=== PATIENT | male | born 1965 | race Two or more races ===

== ENCOUNTER 2024-05-13 15:05 | Outpatient (AMB) | payer OTHER, SELFPAY ==
[2024-05-13 15:08] VITALS: BP 137/79; PULSE 101; O2SAT 97; BMI 43.1
--- NOTE | 2024-05-13 15:08 | A.OFFVIS_ITS ---
Vital Signs 05/13/24 15:08 Height 5 ft 9 in Weight 292 lb BMI 43.1 BP 137/79 Blood Pressure Location Lt brachial Position Sitting Pulse 101 H Pulse Source Pulse Oximeter Pulse Oximetry (%) 97 Oxygen Delivery Method Room Air Intake Visit Reasons: Chronic Lumbar DJD Allergies No Known Allergies Allergy (Verified 05/13/24 15:39) HPI Comments Details: Manual is very pleasant 59 years old gentleman who presents in my office with complains on multiple pain generators. He reports severe pain in the lower back, pain in the right groin, pain in the posterior neck pain in the bilateral shoulders pain in bilateral legs and pain in bilateral feet. He reports that because of his pain he can not sleep normally. He can do activities of daily living. However he can not take care of himself and he can not function normally. He is retired and on permanent disability. He is wheelchair-bound however he reports that he is able to walk, he is able to stand. He reports that heat applications make his pain better. He is currently taking oxycodone 15 mg 5 times a day. In terms of tissue damage he reports his pain as stabbing, lancinating, pinching, cramping, crushing, tugging, pulling, wrenching, dull, sore, hurting, aching, heavy, tiring, exhausting, tight, squeezing, tearing sensation. He had multiple images of the cervical and lumbar spine he as MRI performed in 04/16/2024 results of this MRI dictated as below. He is actually scheduled for yet another neck MRI in the few weeks. He is currently involved in physical therapy water exercises he is wading chest deep in the water. He is also involved in occupational therapy he receives back massages and he never had any injections done. He has extensive past medical history. He reports history of hypertension dizziness and fatigue, history of prostate problem, history of chest pain heart palpitations and angina, history of asthma and shortness of enzo ath. He has history of diabetes cardiac disease and digestive problems. His past surgical history 1993 he had lower back surgery laminotomy L4-5 and neck surgery was performed in 2017. He denies smoking cigarettes he stopped 25 years ago he denies drinking alcohol he drinks 3 cups of coffee a day he denies soda he denies recreational drugs. Review of Systems Const All systems reviewed & are unremarkable except as noted in HPI and below Reports no additional complaints, Reports lethargy and Reports weight gain ENT Reports Normal hearing present Card Reports as per HPI Resp Reports as per HPI GI Reports as per HPI Reports as per HPI Musc Reports as per HPI Neuro Reports no additional complaints, Reports Normal hearing present, Denies Abnormal speech present, Denies confusion and Denies Sensory deficit (Neuro) Psych Reports no additional complaints and Denies confusion Physical Exam Vital Signs: Last Vital Signs Pulse 101 H 05/13/24 15:08 BP 137/79 05/13/24 15:08 Pulse Ox 97 05/13/24 15:08 Oxygen Delivery Method Room Air 05/13/24 15:08 BMI result Body Mass Index 43.1 Const General: no acute distress; No confusion Nutritional Appearance: obese morbidly obese Orientation/consciousness: patient oriented x3 and No confusion Eyes General: appearance normal, both eyes and all related structures Pupils: Equal, round and reactive pupils present EOM: EOMs intact bilaterally Neck Neck: Yes full ROM Chest Chest palpation & inspection: normal inspection of the chest Resp Effort & Inspection: normal respiratory effort, able to speak in complete sent ences, normal respiratory pattern, no audible wheezes and no cough Cardio Jugular venous distension: no JVD GI Inspection: Yes normal to inspection Back/Spine/Pelvis Other: Eben test is positive bilaterally. Pelvic compression test is positive bilaterally. Pelvic distraction test is positive bilaterally. Tenderness on palpation in paraspinal spinal region most lower portion of the lumbar spine and upper sacral bone. Flexing forward and flexing backwards both aggravate his pain. Loading test is positive bilaterally. SLR is positive bilaterally. Lassegue test is positive bilaterally. Lateral rotation of the right hip causes pain in the groin. Negative on the left. Neuro General: patient oriented x3, gait normal and No confusion Cranial nerves: Yes CN's II-XII intact bilaterally, Yes Equal, round and reactive pupils present, Yes Normal hearing present and Yes Ability to bilaterally elevate shoulders present Speech: No Abnormal speech present Gait exam (Neuro): Normal gait present Motor exam (neuro): 5/5 motor strength present throughout Sensory Exam: No Sensory deficit (Neuro) Extrem General: No pedal edema Psych Speech and movement: Normal speech and movement present Affect: normal affect Attitude: cooperative Thought process: Normal thought process present Thought content: Normal thought content present Insight: Good insight present (Psych) Judgement: Good judgement present (Psych) Results Reviewed Results Reviewed: MRI lumbar spine findings: Study assumes 5 tyc-uvk-[id number] lumbar type vertebral bodies. Alignment vertebral marrow and disc. Alignment is normal. Vertebral body heights are preserved. There is combine Modic type 1 in Modic type 2 changes at L4-5. Multilevel endplate osteophytes and facet arthropathy. There is diffuse disc desiccation and there is multiple Schmorl's nodes. There is loss of intervertebral height at L4-5. Conus the conus normal in size and contour and terminates at L1-L2. Paraspinal tissues there is mild atrophy of the posterior paraspinal musculature. Detailed finding by the level. L1-L2 minimal disc bulge and facet spurring. No significant central canal or neural foraminal narrowing. L2-L3: Diffuse disc bulge with posterior central annular fissure and facet spurring. Mild spinal canal narrowing. Minimal bilateral neural foraminal narrowing. L3-L4: Diffuse disc bulge, ligamentum flavum thickening, facet arthropathy with prominent dorsal epidural fat superimposed on congenitally narrowed spinal canal resulting in moderate to severe canal stenosis. There is moderate bilateral neural foraminal narrowing. L4-5 diffuse disc bulge with ligamentum flavum thickening and facet arthropathy. There is probable left-sided laminotomy defect which can not be correlated with surgical history. There is wpve-vd-xowupitj canal stenosis. There is narrowing of the subarticular zones and crowding of the bilateral traversing L5 nerve roots. There is severe bilateral neural foraminal narrowing with crowding of exiting L4 nerve roots. L5-S1: Diffuse disc bulge with a small central protrusion component. Facet arthropathy. No significant canal stenosis. Severe left and moderate right neural foraminal narrowing with crowding of the exiting L 5 nerve root. Assessment & Plan Assessment & Plan (1) Arthritis of right hip: Code(s): M16.11 - Unilateral primary osteoarthritis, right hip Category: Medical (2) Postlaminectomy syndrome of lumbar region: Code(s): M96.1 - Postlaminectomy syndrome, not elsewhere classified Category: Medical (3) Spondylosis without myelopathy or radiculopathy, lumbar region: Code(s): M47.816 - Spondylosis without myelopathy or radiculopathy, lumbar region Category: Medical (4) Sacroiliac joint dysfunction of both sides: Code(s): M53.3 - Sacrococcygeal disorders, not elsewhere classified Category: Medical (5) Sacroiliitis: Code(s): M46.1 - Sacroiliitis, not elsewhere classified Category: Medical Plan 1. This patient is very unfortunate and suffering from multiple arthritis sides in my impression. He has arthritis of the right hip. He has spondylosis of lumbar spine with facet joint arthritis, with positive loading test the pain most likely facetogenic in nature and mostly axial. At the same time SLR is positive bilaterally maybe evident of some nerve root compression which is described as above in the MRI. Another feature of the physical exam points out to the pain in the groin with lateral rotation of the hip. This patient most likely suffers from right hip arthritis. And yet another feature of the physical exam with positive pelvic compression, pelvic distraction, Eben test bilaterally points out to sacroiliitis. 2. I will send him for right hip x-ray. 3. I will schedule him for the bilateral diagnostic sacroiliac joint injection to assess in what extent sacroiliac joints are affecting his pain. 4. I will start him on Celebrex, he previously was trying NSAIDs with some effect however gastric irritation prevented him from taking this medication. Orders: Orders XR hip RT min 2V 05/13/24 M16.11 - Unilateral primary osteoarthritis, right hip Medications: New celecoxib (Celebrex) 100 mg PO BID 60 caps 8RF 30 days Patient Instructions: I here by testify that I spent 46 minutes in conversation with this patient as well as planning his care and organizing this note. Coding Level of Care Code New Pt Level 4 (99310) Diagnoses Arthritis of right hip M16.11 Postlaminectomy syndrome of lumbar region M96.1 Spondylosis without myelopathy or radiculopathy, lumbar region M47.816 Sacroiliac joint dysfunction of both sides M53.3 Sacroiliitis M46.1
--- OUTSIDE RECORDS SUMMARY | 2024-05-13 16:09 | XMS_ITS | Data Portability ---
Author Organization [employer] Address [address] [place] [phone] Assessment Encounter Date Assessment Date Assessment LastModified by Organization Details LastModified Time 02/01/2022 02/01/2022 service called for chest pain foud 56 yom reporting past few days constant 5/10 chest pain provoked by exercise, incompeltel resolved by rest discussed with medic and pt very concerning chest pain pattern refer ED for accelerated w/up [email or web address] Not available 02/01/2022 22:40:06 Plan of Treatment Reminders Order Date Submit Date Provider Last Modified By Organization Details Last Modified Time Details Appointments None record ed. Lab None record ed. Referral None record ed. Procedures None record ed. Surgeries None record ed. Imaging None record ed. Medication Orders None record ed. Patient TargetsNo targets recorded. Patient InstructionsNo instructions recorded. Reason for Referral None Reported. Medical Equipment None Reported. Medications Name Sig Start Date Stop Date Status Note LastModified by Organization Details LastModified Time cyclobenzapr ine 10 mg tablet TAKE 1 TABLET BY MOUTH THREE TIMES DAILY active Not Available Not Available Not Available bupropion HCl SR 150 mg tablet,12 hr sustained-re lease TAKE 1 TABLET BY MOUTH TWICE DAILY active Not Available Not Available No t Available gabapentin 600 mg tablet TAKE 1 TABLET BY MOUTH THREE TIMES DAILY active Not Available Not Available Not Available cetirizine 10 mg tablet TAKE 1 TABLET BY MOUTH DAILY active Not Available Not Available Not Available ibuprofen 800 mg tablet TAKE 1 TABLET BY MOUTH EVERY 8 HOURS NEEDED FOR PAIN active Not Available Not Available No t Available FreeStyle Lancets 28 gauge USE DIRECTED TO TEST FOUR TIMES DAILY active Not Available Not Available Not Available peg-electrol yte solution 420 gram oral solution MIX WITH WATER ACORDING TO PRODUCT LABEL AND DRINK 8 OUNCES EVERY 20 MINUTES.STA RT TO DRINK THE PREP FLUID ON THE EVENING BEFORE COLONOSCOPY . active Not Available Not Available No t Available amoxicillin 500 mg tablet TAKE 1 TABLET BY MOUTH EVERY 8 HOURS FOR 7 DAYS active Not Available Not Available No t Available oxycodone 15 mg tablet TAKE 1 TABLET BY MOUTH FIVE TIMES DAILY PMPCHECKED. FILL ON 01/17/22 active Not Available Not Available No t Available tamsulosin 0.4 mg capsule TAKE 1 CAPSULE BY MOUTH DAILY AT BEDTIME active Not Available Not Available N ot Available trazodone 100 mg tablet TAKE 1 TABLET BY MOUTH DAILY AT BEDTIME active Not Available Not Available N ot Available montelukast 10 mg tablet TAKE 1 TABLET BY MOUTH EVERY EVENING active Not Available Not Available No t Available furosemide 20 mg tablet TAKE 1 TABLET BY MOUTH DAILY active Not Available Not Available Not Available ketoconazole 2 % topical cream APPLY TOPICALLY TO THE AFFECTED AREA DAILY active Not Available Not Available N ot Available fluticasone propionate 50 mcg/actuatio n nasal spray,suspen jannet SHAKE LIQUID AND USE 1 SPRAY IN EACH NOSTRIL EVERY DAY active Not Available Not Available No t Available Ventolin HFA 90 mcg/actuatio n aerosol inhaler INHALE 2 PUFFS BY MOUTH EVERY 4 HOURS NEEDED. active Not Available Not Available No t Available escitalopram 10 mg tablet TAKE 1 TABLET BY MOUTH DAILY active Not Available Not Available Not Available Novolog FlexPen U-100 Insulin aspart 100 unit/mL (3 mL) subcutaneous INJECT PER SLIDING SCALE TWICE DAILY. MAX 80 UNITS PER 24 HOURS active Not Available Not Available No t Available metoprolol tartrate 25 mg tablet TAKE 1 TABLET BY MOUTH TWICE DAILY active Not Available Not Available No t Available chlorhexidin e gluconate 0.12 % mouthwash SWISH 1/2 OUNCE BY MOUTH FOR 30 SECONDS THEN SPIT OUT TWICE DAILY active Not Available Not Available No t Available BD Ultra-Fine Short Pen Needle 31 gauge x 5/16 USE FOUR TIMES DAILY active Not Available Not Available Not Available FreeStyle Lite Strips USE DIRECTED TO TEST BLOOD SUGAR FOUR TIMES DAILY active Not Available Not Available Not Available Breo Ellipta 200 mcg-25 mcg/dose powder for inhalation INHALE 1 PUFF BY MOUTH EVERY DAY active Not Available Not Available No t Available Spiriva Respimat 1.25 mcg/actuatio n solution for inhalation INHALE 2 PUFFS BY MOUTH EVERY DAY active Not Available Not Available No t Available Tresiba FlexTouch U-200 insulin 200 unit/mL (3 mL) subcutaneous pen ADMINISTER 140 UNITS UNDER THE SKIN TWICE DAILY active Not Available Not Available No t Available FreeStyle Sophia 2 Sensor kit USE DIRECTED TO TEST BLOOD SUGAR 3 TO 4 TIMES DAILY active Not Available Not Available No t Available FreeStyle Sophia 2 [place] USE DIRECTED TO CHECK BLOOD SUGAR active Not Available Not Available No t Available Trulicity 3 mg/0.5 mL subcutaneous pen injector INJECT 3 MG UNDER THE SKIN EVERY WEEK ON THE SAME DAY active Not Available Not Available No t Available Trulicity 4.5 mg/0.5 mL subcutaneous pen injector active Not Available Not Available Not Available BinaxNOW COVID-19 Ag Self Test kit TEST DIRECTED TODAY active Not Available Not Available No t Available Vitals Date Recorded Oxygen saturation Oxygen saturation in Arterial blood by Pulse oximetry Heart rate Body temperature Respiratory rate Systolic blood pressure Diastolic blood pressure Provider Name and Address Organization Details Last Updated DateTime 2 95 % 95 % 100 /min 98.1 [degF] 18 /min 165 mm[Hg] 92 mm[Hg] Not Available [facility] - production 2 22:19:25 Social History None recorded. Functional Status None recorded. Mental Status None recorded. Family History Nothing Reported. Medical History No medical history recorded. Past Encounters Encounter ID Performer Location Encounter Start Date Encounter Closed Date Diagnosis/Indication Diagnosis SNOMED-CT Code Diagnosis ICD10 Code Diagnosis Note [id number] Johann Martinez MD Main - [facility] [address] [place] [id number] 02/01/2022 22:19:11 02/04/2022 12:58:26 Chest pain 44533748 R07.9 Health Concerns Section Related Observation LastModified by Organization Detai ls LastModified Time None Recorded Concern Status LastModified by Organization Details LastModified Time None Recorded Advance Directives Directive None Recorded Payers Encounter Date Sequence Insurance Name Policy Number Policy Madden Covered Member ID Madden Member ID Guarantor Name 02/01/2022 1 [facility] - DOS PRIOR TO 2022 - DUAL ELIGIBLE (MEDICARE REPLACEMENT/ADV ANTAGE - HMO) Ruben Lynch [id number] Ruben Lynch Notes Date Note Type Note Provider Name and Address Organization Details Recorded Time 02/01/2022 text/html HPI: mbr with complaints of chest pain, states experiencing pain on and off the last 24hrs, denies any Nausea vomiting or shortness of breath. states feeling lightheaded earlier this morning, denies any at this time, mbr requesting [facility] visit. mbr was advised to go to Ed if symptoms get worse, refusing at this time. Protocol Used: Chest Pain Protocol-Based Disposition: Consider [facility], VPK TEACHER, MD/LEAD NITRATE PROCESSOR triage, PCP, or ED /Urgent Care Visit now Positive Triage Question: * [1] Chest pain lasts > 5 minutes AND [2] occurred in past 3 days (72 hours) (Exception: feels exactly the same as previously diagnosed heartburn and has accompanying sour taste in mouth) Negative Triage Questions: * SEVERE difficulty breathing (e.g., struggling for each breath, speaks in single words) * SEVERE chest pain * Difficulty breathing * Dizziness or lightheadedness ..................... ..................... ..................... ..................... ..................... ..................... ............... CRC Nursing Assessment: Comments: Spoke with member request [facility] visit for eval of chest pain on/off all day states hx of GERD attempt Pepto Bismol with fair effect states feeling a little better deny SOB Discuss if symptoms progress to seek the Emergency room/911 verbalize understanding ..................... ..................... ..................... ..................... ..................... ..................... ............... Archery Instructor Note: Pt states he has chest pressure/pain across the top of his chest. Pt states if he rests it feels a little better but if he gets up and moves around it gets worse. Pt states he is a little dizzy but that is normal for him. EKG non diagnostic. C consulted. Pt suggested to go to the ED. Pt states he will have family take him. ..................... ..................... ..................... ..................... ..................... ..................... ............... Disposition: Fulfilled Johann Martinez MD [address] [facility],[address], [place], [phone], [employer] 02/01/2022 22:40:20
== END 2024-05-13 15:33 | disposition home or self-care (01) ==
PROVIDERS: PCP Nurse Practitioner Family; Referring Provider Nurse Practitioner Family; Visit Provider Anesthesiology
DX: M16.11 Unilateral primary osteoarthritis, right hip (principal); M96.1 Postlaminectomy syndrome, not elsewhere classified; M47.816 Spondylosis without myelopathy or radiculopathy, lumbar region; M53.3 Sacrococcygeal disorders, not elsewhere classified; M46.1 Sacroiliitis, not elsewhere classified
CPT/HCPCS: 99204

== ENCOUNTER → 2024-05-13 15:05 | Outpatient (BNVA) | payer OTHER, SELFPAY | PROVIDERS: PCP Nurse Practitioner Family; Referring Provider Nurse Practitioner Family; Visit Provider Anesthesiology | DX: M16.11 Unilateral primary osteoarthritis, right hip (principal); M96.1 Postlaminectomy syndrome, not elsewhere classified; M47.816 Spondylosis without myelopathy or radiculopathy, lumbar region; M53.3 Sacrococcygeal disorders, not elsewhere classified; M46.1 Sacroiliitis, not elsewhere classified | CPT/HCPCS: 99202 ==

== ENCOUNTER 2024-05-17 10:11 | Outpatient (REF) | payer OTHER, SELFPAY ==
--- NOTE | ~2024-05-17 | XR_ITS ---
EXAMINATION: XR HIP, RIGHT CLINICAL INFORMATION: M16.11 - Unilateral primary osteoarthritis, right hip COMPARISON: None available. TECHNIQUE: Two views of the right hip. FINDINGS: No fracture. Alignment is anatomic. No significant joint space loss. Normal acetabular coverage. Trace enthesopathy of the greater trochanter. Soft tissues demonstrate vascular calcifications but are otherwise normal. XR/XR hip RT min 2V IMPRESSION: Essentially normal right hip. Electronically signed by: Jimy Antonio MD 05/18/2024 12:02 PM [facility]RIGE[facility]
--- OUTSIDE RECORDS SUMMARY | 2024-05-17 11:22 | XMS_ITS | Data Portability ---
Author Organization [employer] Address [address] [place] [phone] Assessment Encounter Date Assessment Date Assessment LastModified [...] Available No t Available FreeStyle Sophia 2 [place] USE DIRECTED TO CHECK BLOOD SUGAR active [...] [id number] Johann Martinez MD Main - [facility] [address] [place] [id number] 02/01/2022 22:19:11 02/04/2022 12:58:26 Chest pain [id number] R07.9 Health Concerns Section Related Observation LastModified by Organization Detai ls LastModified Time None Recorded Concern Status LastModified by Organization Details LastModified Time None Recorded Advance Directives Directive None Recorded Payers Encounter Date Sequence Insurance Name Policy Number Policy Madden Covered Member ID Madden Member ID Guarantor Name 02/01/2022 1 [facility] - DOS PRIOR TO 2022 - DUAL ELIGIBLE (MEDICARE REPLACEMENT/ADV ANTAGE - HMO) Ruben Lynch [id number] Ruben Lynch Notes Date Note Type Note Provider Name and Address Organization Details Recorded Time 02/01/2022 text/html HPI: mbr with complaints of chest pain, states experiencing pain on and off the last 24hrs, denies any Nausea vomiting or shortness of breath. states feeling lightheaded earlier this morning, denies any at this time, mbr requesting [facility] visit. mbr was advised to go to Ed if symptoms get worse, refusing at this time. Protocol Used: Chest Pain Protocol-Based Disposition: Consider [facility], INDUSTRIAL ECONOMICS PROFESSOR, MD/INSTRUMENT WORKER triage, PCP, or ED /Urgent Care Visit [...] Nursing Assessment: Comments: Spoke with member request [facility] visit for eval of chest pain on/off all day states hx of GERD attempt Pepto Bismol with fair effect states feeling a little better deny SOB Discuss if symptoms progress to seek the Emergency room/911 verbalize understanding ..................... ..................... ..................... ..................... ..................... ..................... ............... Foaming Machine Operator Note: Pt states he has chest pressure/pain [...] ............... Disposition: Fulfilled Johann Martinez MD [address] [facility],[address], [place], [phone], [employer] 02/01/2022 22:40:20
== END 2024-05-17 10:12 | disposition home or self-care (01) ==
LOC: HO.XRAY 10:11
PROVIDERS: Visit Provider Anesthesiology
DX: M16.11 Unilateral primary osteoarthritis, right hip (principal)
CPT/HCPCS: 73502

== ENCOUNTER → 2024-05-17 10:19 | Outpatient (BNV) | payer OTHER, SELFPAY | PROVIDERS: Visit Provider Radiology Diagnostic Radiology | DX: M16.11 Unilateral primary osteoarthritis, right hip (principal) | CPT/HCPCS: 73502 ==

== ENCOUNTER 2024-07-13 06:32 | Outpatient (REF) | payer OTHER, SELFPAY ==
--- OUTSIDE RECORDS SUMMARY | 2024-07-13 06:35 | XMS_ITS | Data Portability ---
Author Organization [employer] Address [address] [place] [phone] Assessment Encounter Date Assessment Date Assessment LastModified [...] Available No t Available FreeStyle Sophia 2 [place] USE DIRECTED TO CHECK BLOOD SUGAR active [...] [id number] Johann Martinez MD Main - [facility] [address] [place] [phone] 02/01/2022 22:19:11 02/04/2022 12:58:26 Chest pain [id number] R07.9 Health Concerns Section Related Observation LastModified by Organization Detai ls LastModified Time None Recorded Concern Status LastModified by Organization Details LastModified Time None Recorded Advance Directives Directive None Recorded Payers Encounter Date Sequence Insurance Name Policy Number Policy Madden Covered Member ID Madden Member ID Guarantor Name 02/01/2022 1 [facility] - DOS PRIOR TO 2022 - DUAL ELIGIBLE (MEDICARE REPLACEMENT/ADV ANTAGE - HMO) Ruben Lynch [id number] Ruben Lynch Notes Date Note Type Note Provider Name and Address Organization Details Recorded Time 02/01/2022 text/html HPI: mbr with complaints of chest pain, states experiencing pain on and off the last 24hrs, denies any Nausea vomiting or shortness of breath. states feeling lightheaded earlier this morning, denies any at this time, mbr requesting [facility] visit. mbr was advised to go to Ed if symptoms get worse, refusing at this time. Protocol Used: Chest Pain Protocol-Based Disposition: Consider [facility], CHAIN MACHINE OPERATOR, MD/CANOPY INSPECTOR triage, PCP, or ED /Urgent Care Visit [...] Nursing Assessment: Comments: Spoke with member request [facility] visit for eval of chest pain on/off all day states hx of GERD attempt Pepto Bismol with fair effect states feeling a little better deny SOB Discuss if symptoms progress to seek the Emergency room/911 verbalize understanding ..................... ..................... ..................... ..................... ..................... ..................... ............... Outreach Counselor Note: Pt states he has chest pressure/pain [...] ............... Disposition: Fulfilled Johann Martinez MD [address] [facility],[address], [place], [phone], [employer] 02/01/2022 22:40:20
== END 2024-07-13 06:33 | disposition home or self-care (01) ==
LOC: CF 06:32
PROVIDERS: Visit Provider Anesthesiology
DX: Z13.89 Encounter for screening for other disorder (principal)